=== PATIENT | female | born 1970 | race Caucasian/White ===

== ENCOUNTER 2018-12-07 19:55 | Observation (INO) ==
[2018-12-07] MEDS ORDERED: NS 1,000 ML IV ONE (20:36)
[2018-12-07] MEDS ORDERED: HUMULIN R SUBQ ONE (20:37)
[2018-12-07 20:46] LABS: URINE SOURCE CLEAN CATCH
[2018-12-07 20:55] LABS: BILIRUBIN URINE NEGATIVE (NEGATIVE); BLOOD URINE SMALL (NEGATIVE); COLOR STRAW; GLUCOSE URINE >1000 mg/dL (NEGATIVE); KETONE URINE NEGATIVE (NEGATIVE); LEUKOCYTES URINE NEGATIVE (NEGATIVE); NITRITE URINE NEGATIVE (NEGATIVE); PH URINE 6.5; PROTEIN URINE NEGATIVE (NEGATIVE); SP GRAVITY URINE 1.032; TURBIDITY URINE CLEAR (CLEAR); UROBILINOGEN URINE NORMAL (NORMAL)
[2018-12-07 20:56] LABS: UR EPITHELIAL CELLS <10 /HPF (<10); URINE BACTERIA NEGATIVE /HPF; URINE RBC <10 /HPF (<10); URINE WBC <10 /HPF (<10)
[2018-12-07 21:01] LABS: BASO# 0.07 X1000 (0.0-0.2); BASO% 0.8 % (0.0-0.8); EOS# 0.53 X1000 (0.0-0.7); EOS% 5.9 % (0.0-10.0); HEMATOCRIT 35.9 % (37.0-47.0); HEMOGLOBIN 11.7 g/dL (12.0-16.0); IMM GRAN# 0.04 X1000 (0.0-0.04); IMM GRAN% 0.4 % (0.0-0.5); LYMPH# 2.77 X1000 (1.2-3.4); LYMPH% 30.9 % (20.5-51.1); MCH 27.3 PG (27-31); MCHC 32.6 g/dL (33-37); MCV 83.7 FL (81-99); MONO# 0.65 X1000 (0.11-0.59); MONO% 7.2 % (1.7-9.3); MPV 8.6 FL (7.4-10.4); NEUT# 4.91 X1000 (1.4-6.5); NEUT% 54.8 % (42.2-75.2); PLT 649 X1000 (130-400); RBC 4.29 XMIL (4.2-5.4); RDW 13.6 % (11.5-14.5); WBC 8.97 X1000 (4.8-10.8)
[2018-12-07 21:29] LABS: AGAP 19; ALB/GLOB RATIO 1.2; ALBUMIN 3.8 g/dL (3.5-5.0); ALKALINE PHOSPHATASE 65 U/L (32-104); BUN 13 mg/dL (8-22); CALCIUM 9.1 mg/dL (8.8-10.2); CHLORIDE 85 mmol/L (98-107); COSMO 288; CREATININE 0.8 mg/dL (0.5-0.9); ESTIMATED GFR > 60; GOT 23 U/L (10-30); GPT 27 U/L (10-36); LIPASE 60 U/L (13-60); POTASSIUM 3.8 mmol/L (3.5-5.1); SODIUM 127 mmol/L (136-145); TCO2 23 mmol/L (25-35); TOTAL BILIRUBIN 0.15 mg/dL (0.20-1.00); TOTAL PROTEIN 6.9 g/dL (6.3-8.3)
[2018-12-07 21:38] LABS: GLUCOSE 668 mg/dL (70-104)
--- NOTE | 2018-12-07 21:54 | PROVIDER DOCUMENTATION ---
This chart was entered by Gabriela Tirado Scribe, acting as scribe for Saroj Fried MD. HPI-General Adult - General Chief Complaint: High Blood Sugar Stated Complaint: HIGH BLOOD SUGAR Time Seen by Provider: 12/07/18 20:28 Source: patient Allergies/Adverse Reactions: Patient Allergies Allergy/AdvReac Type Severity Reaction Status Date / Time Fish Containing Products Allergy HIVES Verified 12/07/18 20:40 Home Medications: Home Medication List Medication Instructions Recorded Confirmed Last Taken Type Losartan [Cozaar] 50 mg PO BID 12/08/13 12/07/18 12/07/18 History Chlorthalidone [Hygroton] 25 mg PO DAILY 01/25/15 12/07/18 12/07/18 History Duloxetine HCl 60 mg PO BID 07/18/16 12/07/18 12/04/18 History Hydrochlorothiazide 12.5 mg PO BID 07/18/16 12/07/18 12/07/18 History Fenofibrate 1 tab PO DAILY 12/07/18 12/07/18 12/06/18 History Omeprazole 1 tab PO DAILY 12/07/18 12/07/18 12/07/18 History - History of Present Illness -Gen Adult Nature of Presenting Problems: 48 yof c/o high fsbs of 500, abd pain, bloating and nausea. pt was seen 3-4 wks ago at [facility] and fsbs was 450. pt sts she has never had high fsbs prior to april. pt is followed by dr. fox. pt has hx of htn. pt was too scared or stubborn to follow up about fsbs ubtil today, sts "could not take it anymore." Location of Pain/Injury: reports: abdomen Pain Radiation: reports: no radiation Severity: reports: mild Onset/Duration: reports: other (ongoing since apr fsbs high) Timing: reports: still present Context/Activities at Onset: reports: none Similar Symptoms Previously?: Yes Recently seen or treated by another doctor?: Yes ([facility] 3--4wks ago) - Diabetes Related Context Context: reports: high blood sugar (500). denies: change in mental status, unresponsive, prior DKA hospitalization Review of Systems - Adult - REVIEW OF SYSTEMS - ADULT Constitutional: reports: no symptoms reported. denies: fever, fatique, night sweats Eyes: reports: no symptoms reported. denies: blurred vision, double vision, eye pain Ears, Nose, Mouth & Throat: reports: no symptoms reported Cardiovascular: reports: no symptoms reported Respiratory: reports: no symptoms reported Gastrointestinal: reports: see HPI, abdominal pain, nausea. denies: diarrhea, rectal bleeding, vomiting Genitourinary: reports: no symptoms reported Musculoskeletal: reports: no symptoms reported Integumentary: reports: no symptoms reported Neurological: reports: no symptoms reported Psychiatric: reports: no symptoms reported Endocrine: reports: see HPI, other (high fsbs 500). denies: change in skin pigment, excessive sweating, increased thirst, polyuria Hematologic/Lymphatic: reports: no symptoms reported Allergic/Immunologic: reports: no symptoms reported All Other Systems: Reviewed and Negative Past History - Adult - PAST MEDICAL HISTORY-ADULT Review of Records: reports: Old Records Reviewed, Nursing Assessment Review, Medications Reviewed, Social history reviewed & non-contributory. Major Childhood Illnesses: reports: denies history Cardiovascular: reports: HTN Respiratory: reports: denies history Gastrointestinal: reports: denies history Obstetrical/Gynecological: reports: denies history Genitourinary: reports: denies history Musculoskeletal: reports: osteoporosis, other (fibromyalgia, lupus) Neurological: reports: denies history Psychiatric: reports: anxiety Endocrine/Immune: reports: denies history Other Conditions: reports: denies history - PRIOR SURGERIES/PROCEDURES Surgical/Procedure History: reports: cholecystectomy, , other (uterine ablation) - PRIOR HOSPITALIZATIONS Prior Hospitalizations: reports: none - IMMUNIZATION STATUS Childhood Immunizations: See Nurse Assessment Flu Vaccine: See Nurse Assessment - FAMILY HISTORY Family History: reviewed, not pertinent - SOCIAL HISTORY Smoking: non-smoker Substance Use: none/never Physical Exam-General - PHYSICAL EXAM-ADULT Initial Vital Signs Reviewed: Yes - CONSTITUTIONAL General Appearance: alert, no apparent distress, obese (pt sts was over 400lbs, lost to 336.). negative: lethargic, slow to respond, obtunded - EYES Eyes: PERRL/EOMI, pink conjunctivae - HEAD, EARS, NOSE, MOUTH & THROAT HENMT: normocephalic/atraumatic, moist mucous membranes, normal ENT inspection - NECK Neck: non-tender, full range of motion, supple, normal inspection - RESPIRATORY Respiratory: chest non-tender, lungs clear, normal breath sounds - CARDIOVASCULAR Cardiovascular: normal peripheral pulses, no edema, no gallop, no JVD, no murmur , JVD, bradycardia, tachycardia. negative: regular rate, rhythm - GASTROINTESTINAL (ABDOMEN) Abdominal Exam: normal bowel sounds, no organomegaly, no pulsatile mass, distended, tenderness (general abd to palp). negative: non tender, soft, guarding, rigid, rebound - LYMPHATIC Lymphatic: no adenopathy - MUSCULOSKELETAL Back Exam: normal inspection, no CVA tenderness, no vertebral tenderness Extremity: normal range of motion, non-tender, normal inspection Peripheral Pulses: radial (R): 2+, radial (L): 2+ - SKIN Integumentary: normal color, normal turgor, warm/dry - NEUROLOGIC Neurologic: grossly normal, no motor/sensory deficits - PSYCHIATRIC Psych/Mental Status: normal mood/affect, normal thought content, normal thought process, oriented x 3 Progress - PLAN OF CARE/RESULTS Progress/Plan/Lab Results: Vital Signs - 8 hr 12/07/18 20:09 Temperature 97.9 F Pulse Rate 112 H Respiratory Rate 17 Blood Pressure 160/96 O2 Sat by Pulse Oximetry 97 Laboratory Results - last 24 hr 12/07/18 20:14 POC Glucose 500 H Pt is in DKA, started on insulin drip, spoke with Dr. Momin and will admit to his service Result Diagrams: 12/07/18 20:49 12/07/18 20:49 - REASSESSMENT Reassessment #1 Time Reassessed: 21:30 Status: worsening (668 fsbs critical value rpt.) Departure - Departure Date of Disposition Decision: 12/07/18 Time of Disposition Decision: 21:53 DIAGNOSIS: DKA (diabetic ketoacidoses) Qualifiers: Diabetes mellitus type: type 2 Diabetes mellitus complication detail: without coma Qualified Code(s): E11.10 - Type 2 diabetes mellitus with ketoacidosis without coma Disposition: ADMITTED INPATIENT Certified Medical Emergency: Emergent Condition: Stable Referrals and Follow-Ups: Jaime Fox MD [Primary Care Provider] - - Critical Care Note This patient required my direct & personal management of CC.: Yes Total Time (mins): 36 Critical Care Statement: This patient required my direct personal management to treat or rule out processes, the absence of which, could potentiallly result in sudden, clinically significant life or limb threatening deterioration. Attestation - Physician/ LESA Attestation Patient care was provided by Advanced Practice Provider:: No The physician spent face to face time with patient:: Yes Advanced Practice Provider documentation review:: Supervising physician onsite and consulted in the evaluation and care of this patient. The physician did have a face to face encounter with the patient. This chart was documented by the indicated scribe, (Gabriela Tirado, Ashleigh) and accurately reflects the services I performed and decisions made by me, Saroj Fried MD, as attested by the provider's signature.
[2018-12-07 22:32] LABS: ALLEN TEST YES; BE 1.9 mmoll (-3.0-3.0); BLOOD TYPE ARTERIAL; HCO3-(ACT) 26.4 mmoll (20.0-26.0); METHB 0.5 % (0.0-1.5); O2(CT) 15.4 mL/dL (15.0-23.0); O2HB 95.5 % (95.0-99.0); PCO2(98.6) 41 mmHg (35-45); PO2(98.6) 78 mmHg (60-100); SAMPLE BLOOD; SAO2 97.4 % (95.0-100.0); THB 11.4 g/dL (11.5-17.4); pH(98.6) 7.42 (7.35-7.45)
[2018-12-07 22:33] LABS: MODALITY ROOM AIR
[2018-12-07] MEDS ORDERED: ZOFRAN IV PRN (23:42)
[2018-12-08] MEDS: NS 1,000 ML IV SCH ×5 (00:08→23:37)
[2018-12-08] MEDS: HUMULIN R SUBQ SCH ×5 (00:15→20:47)
--- NOTE | 2018-12-08 02:03 | HISTORY AND PHYSICAL ---
PRIMARY CARE PHYSICIAN: None. CHIEF COMPLAINT: Nausea, dizziness, abdominal bloating. HISTORY OF PRESENTING ILLNESS: A 48-year-old female with a history of hypertension, who had presented to the emergency department with complaint of having some nausea, dizziness and abdominal bloating. The patient states that she had recently found that her blood glucose was elevated and subsequently was worried and had come to the emergency department. In the ED, she was evaluated. She had laboratories drawn which did show that she had a glucose level of 668. Due to her presenting symptoms, it was thought that we will place her for observation for further evaluation and management. At time of my examination, patient denied any headache, fever, chills, chest pain, shortness of breath or any weight changes, but complained of some nausea, and dizziness and not feeling well. PAST MEDICAL HISTORY: Hypertension, hepatitis A. PAST SURGICAL HISTORY: Cholecystectomy. ALLERGIES: No known drug allergies. CURRENT MEDICATIONS: duloxetine 60 mg p.o. b.i.d., fenofibrate 160 mg p.o. daily, hydrochlorothiazide 12.5 mg p.o. b.i.d., losartan 50 mg p.o. b.i.d., omeprazole 40 mg p.o. daily. SOCIAL HISTORY: She denies any history of smoking. History of alcohol use in the past. Denies any illicit drug use. FAMILY HISTORY: Positive for coronary artery disease in father. REVIEW OF SYSTEMS: Fourteen point review of systems as listed in HPI. Other systems negative. PHYSICAL EXAMINATION: GENERAL: Cooperative, friendly, obese female. She is resting comfortably now. VITAL SIGNS: Temperature 97.9 degrees, pulse 112, respirations 17, blood pressure 160/96. HEENT: Atraumatic, normocephalic. Extraocular movements intact. PERRLA. NECK: No masses. CHEST: Clear to auscultation. CARDIOVASCULAR: Regular rate and rhythm. ABDOMEN: Soft, obese, positive bowel sounds. EXTREMITIES: No edema. NEUROLOGIC: He is awake, alert, oriented x3. GENITOURINARY: No bladder distention. SKIN: Warm. LABORATORIES AND STUDIES: Sodium 127, potassium 3.8, chloride 85, CO2 is 23, BUN is 13, creatinine 0.8, glucose 68. WBCs 8.97, hemoglobin 11.7, hematocrit 35.9, platelets 649,000. ASSESSMENT: A 48-year-old obese female with a history of hypertension, had presented to emergency department with several days history of having some nausea, dizziness and abdominal bloating. She was concerned about having elevated blood glucose on her recent primary care office visit. She was evaluated in the emergency department. She had laboratories that were drawn which did show elevated blood glucose. Subsequently, we will place her for observation for further evaluation and management. 1. Hyperglycemia, possible new onset of diabetes mellitus type 2. 2. Vertigo. 3. Hypertension. PLAN: 1. We will admit patient to medical floor with telemetry. 2. We will keep patient NPO. Continue patient on IV fluids and start patient on a sliding scale insulin regimen. 3. We will check a hemoglobin A1c. 4. We will start meclizine if patient has any symptoms of vertigo. 5. We will monitor blood pressure closely and resume antihypertensive agent. 6. We will child welfare counselor patient on diet and exercise. 7. We will put patient on DVT prophylaxis with SCD. 8. We will continue to follow, reassess and make further recommendation based on patient's clinical course. cc: Fabian Momin MD MTDD
[2018-12-08 05:21] LABS: BASO# 0.06 X1000 (0.0-0.2); BASO% 0.8 % (0.0-0.8); EOS# 0.46 X1000 (0.0-0.7); EOS% 5.8 % (0.0-10.0); HEMOGLOBIN 11.7 g/dL (12.0-16.0); IMM GRAN# 0.05 X1000 (0.0-0.04); IMM GRAN% 0.6 % (0.0-0.5); LYMPH# 2.33 X1000 (1.2-3.4); LYMPH% 29.3 % (20.5-51.1); MCH 27.3 PG (27-31); MCHC 32.5 g/dL (33-37); MCV 83.9 FL (81-99); MONO# 0.58 X1000 (0.11-0.59); MONO% 7.3 % (1.7-9.3); MPV 8.4 FL (7.4-10.4); NEUT# 4.47 X1000 (1.4-6.5); NEUT% 56.2 % (42.2-75.2); PLT 547 X1000 (130-400); RBC 4.29 XMIL (4.2-5.4); RDW 13.7 % (11.5-14.5); WBC 7.95 X1000 (4.8-10.8)
[2018-12-08 05:35] LABS: HEMOGLOBIN A1C 13.9 % (4.8-6.0)
[2018-12-08 05:56] LABS: AGAP 15; BUN 16 mg/dL (8-22); CALCIUM 9.4 mg/dL (8.8-10.2); CHLORIDE 92 mmol/L (98-107); COSMO 279; CREATININE 0.6 mg/dL (0.5-0.9); ESTIMATED GFR > 60; GLUCOSE 299 mg/dL (70-104); SODIUM 133 mmol/L (136-145); TCO2 26 mmol/L (25-35)
[2018-12-08] MEDS: COZAAR PO SCH ×2 (08:58→20:49)
[2018-12-08] MEDS: CYMBALTA PO SCH ×2 (08:58→20:49)
[2018-12-08] MEDS: HYDROCHLOROTHIAZIDE PO SCH ×2 (08:58→20:49)
[2018-12-08] MEDS: LOFIBRA PO SCH (08:59)
[2018-12-08] MEDS: KLOR-CON PO SCH ×2 (09:38→20:49)
[2018-12-08] MEDS: PRILOSEC PO SCH (09:38)
[2018-12-08] MEDS ORDERED: LANTUS INSULIN SUBQ SCH (10:15)
[2018-12-08] MEDS: TYLENOL PO PRN ×2 (12:00→18:39)
--- NOTE | 2018-12-08 12:06 | PROGRESS NOTE ---
DATE: 12/08/2018 SUBJECTIVE: This patient is feeling better compared with yesterday. She is still complaining of abdominal bloating and discomfort. Her sodium level is low and I will replace it. Her pseudohyponatremia is better, from 127 to 133. Hemoglobin A1c is really high at 13.9. Her blood sugar today was 299, so I will start this patient on 25 units of insulin. I will put her on a diet. I had a large conversation with this patient about diabetes and obesity. I will decrease the rate of the IV fluids and I will continue with her blood pressure medication. OBJECTIVE: Vital Signs: Temperature 98.2 degrees, pulse 96, respiratory rate 16, blood pressure 129/70, oxygen saturation 98 on room air. HEENT: Head normocephalic, no trauma. PERRLA. Neck: Supple no JVD. No masses. Central trachea. Chest: Clear to auscultation. No wheezing. No rales. Abdomen: Soft, obese, protuberant. Some discomfort to palpation at the level of the periumbilical area. Extremities: No edema, no clubbing, no cyanosis. Neurologic: The patient is alert, she is oriented x3. No focal deficits. LABORATORY: WBC 7.9, hemoglobin 11.7, hematocrit 83.9, platelets 547,000. Sodium 133, potassium 3, chloride 92, bicarbonate 26, BUN 16, creatinine 0.6, glucose 299. Calcium 9.4. Hemoglobin A1c 13.9. ASSESSMENT AND PLAN: 1. New-onset type 2 diabetes, with hyperglycemia, I will start this patient on long-acting insulin, Lantus. I discussed with her at length about diabetes, obesity and diet. She seems to understand. I will monitor this patient. I will continue with sliding scale insulin and I will adjust the medication in the morning, so she can go home. 2. Vertigo, probably due to hyperglycemia and dehydration. 3. Dehydration, resolved. 4. Hypertension. Continue with the same management that she has been taking at home. She is already on ARBs. 5. Morbid obesity, with a body mass index of 58.9, diet and exercise have been discussed at length. 6. Possible history of hepatitis C, aware. She should follow this up with her primary care doctor. cc: Brayden Cortez MD
[2018-12-09] MEDS: PRILOSEC PO SCH (06:40)
[2018-12-09] MEDS: HUMULIN R SUBQ SCH (06:41)
[2018-12-09 06:43] LABS: AGAP 18; BUN 9 mg/dL (8-22); CALCIUM 8.8 mg/dL (8.8-10.2); CHLORIDE 93 mmol/L (98-107); COSMO 275; CREATININE 0.5 mg/dL (0.5-0.9); ESTIMATED GFR > 60; GLUCOSE 280 mg/dL (70-104); SODIUM 133 mmol/L (136-145); TCO2 22 mmol/L (25-35)
[2018-12-09 08:06] VITALS: BP 163/91
[2018-12-09] MEDS: CYMBALTA PO SCH (08:30)
[2018-12-09] MEDS: HYDROCHLOROTHIAZIDE PO SCH (08:30)
[2018-12-09] MEDS: LOFIBRA PO SCH (08:30)
[2018-12-09] MEDS: COZAAR PO SCH (08:30)
[2018-12-09] MEDS ORDERED: LANTUS INSULIN SUBQ SCH ×2 (09:00)
--- NOTE | 2018-12-09 13:39 | DISCHARGE SUMMARY ---
ADMISSION DATE: 12/07/2018 DISCHARGE DATE: 12/09/2018 DISCHARGE DIAGNOSES: 1. New onset type 2 diabetes with hyperglycemia. 2. Vertigo likely due to dehydration. 3. Dehydration, resolved. 4. Hypertension. 5. Morbid obesity with a body mass body mass index of 58.9. 6. Possible history of hepatitis C. HOSPITAL COURSE: A 48-year-old female with a past medical history of hypertension, morbid obesity presented to the emergency department with a chief complaint of nausea, dizziness, and abdominal bloating. The patient states that recently she was found to have elevated blood sugar and subsequently was worried and had to come to the emergency department. In the emergency department, she was evaluated. Her laboratory showed blood sugar level of 668. She received some insulin and also IV fluids and she was kept for observation. I put this patient on long-acting insulin the next day. She seemed to be responding well to the treatment. Blood sugar was mostly in the 200s, but she received multiple times sliding scale insulin. The dose of the insulin at the beginning was 25 units of Lantus and then increased to 45 today. We had an extensive conversation about physical activity. This patient seems to understand and, as per the patient, she will make some changes. She does have an appointment with her primary care doctor in 2 days, next 12/11/2018. At the moment of discharge, this patient was in stable medical condition, tolerating p.o. and ambulating. She was not having any kind of complaints either. PHYSICAL EXAMINATION: Vital Signs: Temperature 97.7 degrees, pulse 100, respiratory rate 16, blood pressure 163/91, oxygen saturation 99 on room air. HEENT: Head normocephalic, no trauma. PERRLA. Neck: Neck is supple. No JVD. No masses. Central trachea. Chest: Clear to auscultation. No wheezing. No rales. Abdomen: Soft, protuberant, obese, nondistended. Extremities: No edema, no clubbing, no cyanosis. Neurological examination: The patient is alert. She is oriented x3. No focal deficits. LABORATORY: Sodium 133, potassium 4, chloride 93, bicarbonate 22. BUN 9, creatinine 0.5, glucose 280, calcium 8.8. DISCHARGE MEDICATIONS: 1. Duloxetine 60 mg p.o. b.i.d. 2. Fenofibrate 1 tablet p.o. daily, 160 mg. 3. Hydrochlorothiazide 12.5 mg p.o. b.i.d. 4. Lantus insulin 45 units subcutaneous daily. 5. Losartan 50 mg p.o. b.i.d. 6. Omeprazole 40 mg p.o. daily. FOLLOWUP: Follow up with her primary care doctor in 2 days. cc: Brayden Cortez MD
== END 2018-12-09 09:42 | disposition home or self-care (01) ==
LOC: ED 19:55 → SUATTDRO 23:12 → INTOOBSV 23:12 → 1N 23:12
PROVIDERS: ATTEND Internal Medicine